=== PATIENT | male | born 1960 | race Hispanic/Latino ===

== ENCOUNTER 2022-03-18 15:56 | Emergency (ER) | payer OTHER ==
[~2022-03-18] VITALS: Ht 175.3 cm; Wt 71.2 kg
[2022-03-18] MEDS ORDERED: CEPH500B PO (16:21)
[2022-03-18] MEDS ORDERED: CEPHALEXIN 500 MG CAPSULE PO ONE (16:30)
[2022-03-18] MEDS ORDERED: L.E.T. GEL 3ML SYG TP ONE (16:30)
[2022-03-18 17:17] VITALS: BP 126/73
== END 2022-03-18 17:22 | disposition home or self-care (01) ==
LOC: EDH 15:56
DX: S01.81XA Laceration without foreign body of other part of head, initial encounter (principal); X58.XXXA Exposure to other specified factors, initial encounter; Y93.89 Activity, other specified; Y92.89 Other specified places as the place of occurrence of the external cause; Y99.8 Other external cause status
CPT/HCPCS: 12011